=== PATIENT | male | born 1965 | race Caucasian/White ===

== ENCOUNTER 2017-06-17 22:38 | Emergency (ER) | payer OTHER ==
[~2017-06-17] VITALS: Ht 190.5 cm; Wt 122.5 kg
[~2017-06-17 22:38] MED LIST: ASPIRIN 81MG TA81 MG PO; FOLIC ACID 1MG T1 MG PO; ISOSORBIDE MONO30 MG PO; METOPROLOL25 MG PO; NIASPAN500 M1 PO; NORVASC 10MG. T10 MG PO; OMEPRAZOLE40 MG PO; PRAVASTATIN 40M40 MG PO
[2017-06-17] MEDS ORDERED: BISOPROLOL FUMA1 TA4 PO (22:51)
[2017-06-17] MEDS ORDERED: CLOPIDOGREL75 M2 PO (22:53)
--- OUTSIDE RECORDS SUMMARY | 2017-06-17 22:58 | External Medical Summary Rpt ---
Author Author ELDON Ortega, ELDON Ortega Organization [employer] Address Unknown Phone Unavailable
--- OUTSIDE RECORDS SUMMARY | 2017-06-17 22:58 | External Medical Summary Rpt ---
Author Author ELDON Ortega, ELDON Ortega Organization [employer] Address Unknown Phone Unavailable
--- OUTSIDE RECORDS SUMMARY | 2017-06-17 22:58 | External Medical Summary Rpt | CCD ---
Author Author , ELDON COLÓN Address Unknown Phone Care Team Providers Care Operating Room Surgical Technician Name Role Phone AMBROCIO RODRÍGUEZ, AMBROCIO RODRÍGUEZ Unavailable Unavailable [facility] Unavailable Unavailable [facility], [facility] GIBSON ONOFRE, GIBSON Unavailable Unavailable JEMIMA Purpose Continuity of Care Document - 09-27-2013 through 2016 Problems Code Diagnosis DOS Provider Status 4011 ESSENTIAL 10-04-2013 [facility] HYPERTENSIO [place] N, [facility] 51549 CORONARY 10-04-2013 NEW ATHEROSCLER [place] [facility] CORONARY ARTERY 4111 INTERMEDIAT 10-03-2013 NEW E CORONARY [facility] 4139 OTHER AND 10-03-2013 GIBSON ONOFRE UNSPECIFIED ANGINA PECTORIS 48362 OTHER 10-03-2013 GIBSON ONOFRE DYSPNEA AND RESPIRATORY ABNORMALITI ES 7993 UNSPECIFIED 10-03-2013 GIBSON ONOFRE DEBILITY 2724 OTHER AND 10-02-2013 NEW UNSPECIFIED [facility] HYPERLIPIDE KASIE 3674 PRESBYOPIA 09-27-2013 AMBROCIO RODRÍGUEZ
--- OUTSIDE RECORDS SUMMARY | 2017-06-17 22:58 | External Medical Summary Rpt | CCD ---
Demographics Preferred Language Filipino Marital Status Unknown Mosque Affiliation Unknown Race Unknown Ethnic Group Unknown Author Author , ELDON COLÓN Address Unknown Phone Immunization No patient found.
--- OUTSIDE RECORDS SUMMARY | 2017-06-17 22:58 | External Medical Summary Rpt | CCD ---
Author Author , ELDON COLÓN Address Unknown Phone Care Team Providers Care Mixer Operator Raw Salt Name Role Phone AMBROCIO RODRÍGUEZ, AMBROCIO RODRÍGUEZ Unavailable Unavailable [facility] Unavailable Unavailable [facility], [facility] GIBSON ONOFRE, GIBSON Unavailable Unavailable JEMIMA Purpose Continuity of Care Document - 09-27-2013 through 2016 Problems Code Diagnosis DOS Provider Status 4011 ESSENTIAL 10-04-2013 NEW HYPERTENSIO [place] N, [facility] 61745 CORONARY 10-04-2013 NEW ATHEROSCLER [place] [facility] CORONARY ARTERY 4111 INTERMEDIAT 10-03-2013 NEW E CORONARY [facility] PSC 4139 OTHER AND 10-03-2013 GIBSON ONOFRE UNSPECIFIED ANGINA PECTORIS 68764 OTHER 10-03-2013 GIBSON ONOFRE DYSPNEA AND RESPIRATORY ABNORMALITI ES 7993 UNSPECIFIED 10-03-2013 GIBSON ONOFRE DEBILITY 2724 OTHER AND 10-02-2013 NEW UNSPECIFIED [facility] HYPERLIPIDE KASIE 3674 PRESBYOPIA 09-27-2013 AMBROCIO RODRÍGUEZ
--- OUTSIDE RECORDS SUMMARY | 2017-06-17 22:58 | External Medical Summary Rpt | CCD ---
Author Author , ELDON COLÓN Address Unknown Phone Care Team Providers Care Tinning Machine Set Up Operator Name Role Phone AMBROCIO RODRÍGUEZ, AMBROCIO RODRÍGUEZ Unavailable Unavailable [facility] Unavailable Unavailable P[facility], [facility] GIBSON ONOFRE, GIBSON Unavailable Unavailable JEMIMA Purpose Continuity of Care Document - 09-27-2013 through 2016 Problems Code Diagnosis DOS Provider Status 4011 ESSENTIAL 10-04-[address] [facility] HYPERTENSIO [place] N, [facility] 01936 CORONARY 10-04-2013 NEW ATHEROSCLER [place] [facility] CORONARY ARTERY 4111 INTERMEDIAT 10-03-2013 NEW E CORONARY [facility] P[facility] 4139 OTHER AND 10-03-2013 GIBSON ONOFRE UNSPECIFIED ANGINA PECTORIS 60759 OTHER 10-03-2013 GIBSON ONOFRE DYSPNEA AND RESPIRATORY ABNORMALITI ES 7993 UNSPECIFIED 10-03-2013 GIBSON ONOFRE DEBILITY 2724 OTHER AND 10-02-2013 NEW UNSPECIFIED [facility] HYPERLIPIDE KASIE 3674 PRESBYOPIA 09-27-2013 AMBROCIO RODRÍGUEZ
--- OUTSIDE RECORDS SUMMARY | 2017-06-17 22:58 | External Medical Summary Rpt | CCD ---
Author Author , ELDON COLÓN Address Unknown Phone [email or web address] Care Team Providers Care Key Person Name Role Phone AMBROCIO RODRÍGUEZ, AMBROCIO RODRÍGUEZ Unavailable Unavailable [facility] Unavailable Unavailable [facility], [facility] GIBSON ONOFRE, GIBSON Unavailable Unavailable JEMIMA Purpose Continuity of Care Document - 09-27-2013 through 2016 Problems Code Diagnosis DOS Provider Status 4011 ESSENTIAL 10-04-2013 NEW HYPERTENSIO [place] N, [facility] 55419 CORONARY 10-04-2013 NEW ATHEROSCLER [place] [facility] CORONARY ARTERY 4111 INTERMEDIAT 10-03-2013 NEW E CORONARY [facility] [facility] 4139 OTHER AND 10-03-2013 GIBSON ONOFRE UNSPECIFIED ANGINA PECTORIS 81864 OTHER 10-03-2013 GIBSON ONOFRE DYSPNEA AND RESPIRATORY ABNORMALITI ES 7993 UNSPECIFIED 10-03-2013 GIBSON ONOFRE DEBILITY 2724 OTHER AND 10-02-2013 NEW UNSPECIFIED [facility] HYPERLIPIDE KASIE 3674 PRESBYOPIA 09-27-2013 AMBROCIO RODRÍGUEZ
--- OUTSIDE RECORDS SUMMARY | 2017-06-17 22:58 | External Medical Summary Rpt | CCD ---
Demographics Preferred Language Irish Marital Status Unknown Anabaptist Affiliation Unknown Race Unknown Ethnic Group Unknown Author Author , ELDON COLÓN Address Unknown Phone Immunization No patient found.
--- NOTE | 2017-06-17 23:08 | Emergency Room Report ---
History of Present Illness Time Seen by 4700 Presenting Problem in Triage Pt arrived:Walked Presenting Problem:FEELS LIKE HE HAS SOMETHING STUCK IN HIS THROAT. HAS FELT THAT WAY FOR A WEEK. DENIES DIFFICULTY CHEWING OR SWALLING. REPORTS DIFFICULTY BREATHING. 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 N Clinical Suspician of Infection? N Mental Status: 1 - Regular (Normal Baseline) Sepsis Risk:Low Sepsis Risk Have you (or family members/close friends) recently traveled outside the [facility]? N If Yes, where/when: Have you had exposure to infectious disease within the past month? N TB? Other? Specify: Comment The patient has a couple of different problems with breathing. He says since mid -April he has had a sensation of being short of air, sometimes waking him up at night. For the past week he also now feels like he has a constriction in his throat, something causing difficulty in getting air past the area of his lower neck area. He thinks this all started after regurgitating some pizza. He says that he gets sick about a month ago when he was in [place] with a bad head cold. He called his physician last week and was prescribed doxycycline. The cold symptoms have improved. He does not have any current nasal drainage or postnasal drip. He says at one point he was very hoarse and couldn't talk, that has also improved. He has been traveling to [place] and [place], driving frequently. He has some swelling of his legs intermittently. ALLERGIES Coded Allergies: amoxicillin (06/17/17) levofloxacin (From LEVAQUIN) (06/17/17) oxybutynin (06/17/17) Home Medications Reported Medications AMLODIPINE BESYLATE (Norvasc) 10 MG PO DAILY Isosorbide Mononitrate (Isosorbide Mononitrate ER) 30 MG PO DAILY Omeprazole (Omeprazole 40MG) 40 MG PO DAILY ASPIRIN (Aspirin) 81 MG PO DAILY PRAVASTATIN SODIUM (Pravastatin Sodium) 80 MG PO QHS FOLIC ACID (Folic Acid) 400 MCG PO DAILY BISOPROLOL FUMARATE/HCTZ (Bisoprolol-Hctz 10-6.25 MG Tab) 1 TAB PO DAILY CLOPIDOGREL BISULFATE (Clopidogrel) 75 MG PO DAILY #30 History Medical History General CAD? Yes Angina: Yes LA: Yes Hypertension? Yes Hyperlipidemia? Yes CHF? No DVT? No PE? No COPD? No Asthma? No Anemia? No GERD? No Gastric ulcers? No GI Bleed? No Hernia? No Thyroid Problems? No Hypothyroidism? No CVA? No Seizures? No Diabetes? No Renal Insuffiency? No End Stage Renal Disease? No UTI? No Stones? No BPH? No GB Disease: No Nephritic Syndrome? No Asplenia? No Hepatitis? No Sickle Cell Disease? No Arthritis? No Migraines? No Cataracts? No Glaucoma? No MRSA? No HIV? No TB? No Anxiety? No Depression? No Cancer? No More? No Immunization Hx DT/Tetanus Unknown Surgical Hx Previous Surgery?Y Hernia Repair RIGHT HAND ABDOMINAL ANNEURYSM Social History Smoking Hx Smoker: Former Smoker Tobacco: No Are you/the child exposed to second-hand smoke: No Alcohol Alcohol: Yes Review of Systems All Other Systems Reviewed and Negative Constitutional denies fever ENT see HPI. Respiratory shortness of breath Cardiovascular denies chest pain Physical Exam Vital Signs Vital Signs Date Time Temp Pulse Resp B/P Pulse O2 O2 Flow FiO2 Ox Delivery Rate 06/18 0128 97.7 60 12 148/67 97 06/18 0127 97.7 60 12 148/67 97 06/17 2242 97.7 70 18 202/108 98 General Appearance no apparent distress Eye Exam - bilateral eye normal exam, bilateral eye PERRL, bilateral eye EOMI Ear, Nose, Throat asymmetry of posterior pharynx, RIGHT side protrudes more than LEFT. No stridor or drooling. Neck normal inspection, non-tender, supple, full range of motion Respiratory Status Yes: trachea midline, chest symmetrical. No: respiratory distress. Lung Sounds bilateral: normal breath sounds, lungs clear. Cardiovascular normal exam, regular rate/rhythm, no peripheral edema, no gallop, no JVD, no murmur, no rub, normal peripheral pulses Gastrointestinal normal bowel sounds, normal exam, non tender, soft, no organomegaly Extremities normal inspection, no calf tenderness, no pedal edema Neurologic alert, oriented x 3 Mental status normal mood/affect Skin intact, normal color, warm/dry Lymphatic no adenopathy Medical Decision Making LABS/Meds/Orders Pt receiving controlled substance in ED? No Results/Orders Laboratory Tests 06/17/172334: Sodium 142, Potassium 3.6, Chloride 105, Carbon Dioxide 26, BUN 22 H, Creatinine 1.4 H, Estimated Creat Clear 108, Estimated GFR (MDRD) 53, Glucose 97, Calcium 9.5, Total Bilirubin 0.3, AST 35, ALT 49, Alkaline Phosphatase 66, Troponin I < 0.02, Total Protein 7.7, Albumin 4.0, Globulin 3.7 H, Albumin/ Globulin Ratio 1.1, D-Dimer 3890 *H, WBC 9.8, RBC 4.45 L, Hgb 14.2, Hct 41.3 L , MCV 92.6, RDW 13.2, Plt Count 292, MPV 7.1 L, Gran % 64.0, Gran # 6.3, Lymphocytes % 27.7, Monocytes % 5.9, Eosinophils % 2.1, Basophils % 0.3, Lymphocytes # 2.7, Monocytes # 0.6, Eosinophils # 0.2, Basophils # 0.0, PUBS MCHC 34.4, MCH 31.8 H Current Medication Orders Sig/Marlee Start time Last Medication Dose Route Stop Time Status Admin Dexamethasone Sodium 8 MG ONCE ONE 06/18 115 DC 06/18 Phosphate IV 06/18 116 0112 Dexamethasone Sodium 0 .STK-MED ONE 06/18 113 DC Phosphate .ROUTE Dexamethasone Sodium 0 .STK-MED ONE 06/18 107 DC Phosphate .ROUTE Iopamidol 75 ML ONCE ONE 06/18 100 DCD 06/18 IV 06/18 010 0048 Sodium Chloride 10 ML PRN PRN 06/18 100 DCD 06/18 IV 06/18 0217 0048 Sodium Chloride 1,000 ML .STK-MED ONE 06/185 DC IV Sodium Chloride 1,000 ML .Q1H1M 06/18 0015 DC 06/18 IV 06/18 011 0029 Sodium Chloride 10 ML PRN PRN 06/17 2330 DCD IV 06/18 2322 Orders Procedure Date/time Status DIET-NOTHING BY MOUTH 06/[address] SOFT TISSUE NECK W/CONTRAST 06/18 2338 Active CTA-CHEST 06/[address] SCAN REQ 06/[address] CHEST W/PE PROTOCOL REQ 06/18 233 Active ELECTROCARDIOGRAM REQUEST 06/17 2322 Active IV SALINE LOCK 06/17 2322 Active TROPONIN I 06/17 2322 Complete D-DIMER 06/17 2322 Complete CBC WITH AUTO DIFF 06/17 2322 Complete CHEM 12 PROFILE 06/17 2322 Complete CHEST(2 VIEWS-NOT PORTABLE) 06/17 2259 Active 12 LEAD EKG-POLLY (INITIAL) 06/17 UNK Active CM/EKG CM/EKG Comments EKG interpreted by Adan Groves MD: Rhythm: sinus bradycardia Rate: 57 Donald: normal Ectopy: none Conduction: normal ST Segment Changes: none T Wave Changes: none Q Waves: none No evidence of acute ischemia or injury XRAY/CT/US XRAY/CT/US Comment Chest x-ray interpreted by Adan Groves M.D. No infiltrate, pneumothorax, pleural effusion, or wide mediastinum. No foreign body seen. CT chest, neck Comment CT scan interpreted by [facility] radiologist. Faxed report received and reviewed: Chest: No acute process Neck: 6 mm nodule apex of RIGHT lung. Abnormal masslike soft tissue density involving the larynx. This may be infectious, inflammatory, or neoplastic. Departure Departure Disposition DC Home or Self Care(routine) Clinical Impression Primary Impression: Laryngeal edema Condition STABLE Referrals Polly KIRKLAND,Gigi (Family) Gilbert KIRKLAND,Edil [facility] - call for appointment Patient Instructions DI for Laryngitis, DI for Pulmonary Nodule Additional Instructions Follow-up with your primary care physician or ear nose throat physician if throat symptoms persist this week. Return to the emergency department if any increased difficulty breathing. Follow-up with your primary care physician regarding pulmonary nodule, recommended repeat CT scan in 6-12 months. Prescriptions Current Visit Scripts Prednisone (Prednisone 10MG) 10 MG PO DAILY #27 TAB 6 po on days 1-2, then decrease dose by 1 pill per day until gone ED Critical Care Critical Care No at 0140
[2017-06-17 23:48] LABS: HEMOGLOBIN 14.2 g/dL (14.1-18.0); LYMPH # 2.7 K/mm3 (0.7-4.5); LYMPH % 27.7 % (10-50)
[2017-06-18] LABS: BUN 22 mg/dL (7-18)
[2017-06-18 00:11] LABS: GFR (ESTIMATED) 53 ML/MIN (>60)
[2017-06-18] MEDS ORDERED: PREDNISONE 10MG10 MG PO (01:20)
[2017-06-18 01:28] VITALS: BP 148/67
--- NOTE | 2017-06-18 13:32 | RADIOLOGY REPORT PS360 ---
CTA-CHEST Ordering Physician: Adan Groves MD Patient Age: 51 years: Male HISTORY: SOA Previous smoker. Dyspnea. Dysphagia. TECHNIQUE: Helical CT is performed the chest following cc cc Isovue-370 followed x 40 mL normal. COMPARISON : Only a AP chest from 12/31/2014 FINDINGS Is a note small 5.5 mm nonspecific nodule at the right lung apex seen on the CT C-spine as well as a final CT apex lung images from today. The pulmonary artery with good contrast with no evidence of pulmonary embolism... Minimal iatrogenic air at the base of pulmonary artery anteriorly from IV contrast injection. Aorta is normal in caliber with no aneurysm nor dissection. Minimal calcification origin of great vessels. Heart. Coronary artery calcifications throughout involving left main, LAD, circumflex. Borderline cardiomegaly. No vascular congestion. COPD with underlying emphysematous changes developing. There is scarring at the anterior right lung base. Linear in character at anterior RML. . Calcified hilar granulomatous most evident at right ren more so than left, most notable flexion calcified nodes measuring over 50 mm there azygos just above right bronchus.. No pathologic hilar no mediastinal adenopathy. Chest wall. No significant findings. Upper abdomen. Fatty changes in liver... Cannot exclude tiny early gallstone. Equivocal at best. Abdominal endograft with begins at the level of the celiac artery. Additional short Stent at SMA origin is noted and associated. IMPRESSION: 1. No evidence of pulmonary embolism. Good enhancement & evaluation pulmonary arteries on this study. Aortic arch great vessels satisfactory. 2. No acute findings in the chest. Early emphysematous changes. Old renal masses disease. 3.Small 5.5 mm nonspecific nodule at the right lung apex. Doubt of significance but warrants follow-up 4.. Borderline cardiomegaly. Coronary artery calcification. No CHF 5. Abdominal aortic endograft stent noted as in text..
--- NOTE | 2017-06-18 13:33 | RADIOLOGY REPORT PS360 ---
CHEST(2 VIEWS-NOT PORTABLE) Ordering physician: Adan Groves MD Age: 51 years Male INDICATION: chest symptomsSOA previous smoker PROCEDURE: CHEST(2 VIEWS-NOT PORTABLE) FINDINGS: Mild hyperexpansion and flattened diaphragms the lateral film suggesting possible mild early developing COPD features. \ Lungs well expanded and clear with nothing definitely acute. No pneumothorax. No pleural effusion.. Heart normal size. Normal pulmonary vascularity. Hilar and mediastinal structures appear satisfactory. The left ren is more generous than the right butThis is similar to 2015 CXR. Stable chest Chest wall unremarkable.. . The aorto endograft stent incidentally noted in place. The upper abdomen. IMPRESSION ----- Stable chest. Lungs mildly hyperexpanded but clear. Nothing definitely acute
--- NOTE | 2017-06-19 08:42 | RADIOLOGY REPORT PS360 ---
CT SOFT TISSUE NECK W/CONTRAST Ordering Physician: Adan Groves MD Patient Age: 51 years: Male HISTORY: SOA dyspnea. Dysphagia. TECHNIQUE: Helical CT scanning performed through the neck but with no IV contrast utilized. I would note IV contrast very helpful in evaluating neck. Axial, Sagittal & coronal reconstructions on CT workstation COMPARISON :. No previous neck studies. Lateral view of neck from the CT head 1615 FINDINGS \ Subtle additional soft tissue density region of larynx this most evident posteriorly at midline at at and above the level of the arytenoid cartilage with slight additional soft tissue density suggestion of midline sagittal image 33, axial 60-62.. Also appears to be some mild thickening or edema in the region of the false cords extending down to the true cords.-These features seemed obscure the laryngeal ventricle which is not visualized on today's study coronal views as typically seen. Suspect mild thickening of the aryepiglottic fold and.. No significant subglottic edema These features could reflect a localized inflammation with swelling, but I could not exclude other process or early neoplastic process. ENT consult recommended. If symptoms persist to direct visualization recommended Epiglottis appears normal. There is some minor lymphoid tissue prominence at the base the finding at lingual tonsil of partially extends towards the vallecula. However no discrete mass is seen here. Hasty tonsils of moderate size.. More superiorly the nasopharynx appears satisfactory No additional significant neck adenopathy. Scattered mild to moderate size reactive nodes are seen at the anterior cervical chain anterior to the carotid bifurcation. One of the larger nodes measures 11 mm x 8 mm jugulodigastric region on left. Slight increased number of scattered small likely reactive nodes are seen extending throughout the anterior cervical chain, throughout this region down to the supraclavicular region.. Calcified right carotid bifurcation more so than left.. Paranasal sinuses: diffuse moderate/generous mucosal thickening throughout floor inferior aspect maxillary sinuses bilaterally . Slight lobulated in character this mucosal thickening has become evident since prior 2015 CT head.The partially imaged ethmoid air cells and sphenoid sinus appear clear. Base of skull intact. Degenerative changes C-spine, cervical spondylosis. Degenerative disc space narrowing & early cervical spondylosis c4/5, C5 /C6, C6/7. Mild posterior hypertrophic osteophytes at each of these levels most evident C5/ C6 & C6/7 with foraminal encroachment noted bilaterally due to spurring. At the right lung apex is a 5.6 mm nodular density. Tend to favor due to scarring but will benefit from follow-up a particular if a history of smoking.CT chest in 6 months suggested IMPRESSION 1. Suggestion of small focal soft tissue density posterior supraglottic region just above & between the calcified arytenoid cartilage elements, (sagittal image 33. Axial slice 60-62) . Also associated thickening towards aryepiglottic folds with some mild edema and/or thickening extending towards false & true vocal cord region I believe evident.-. These latter features obscure the typically visualized laryngeal ventricle.. (Although observations may reflect an inflammatory process, cannot exclude early neoplastic process, as discussed on [facility] report. Requires ENT follow-up) 2. Scattered small to moderate size reactive appearing nodes throughout the neck no prominent enlarged nodes nor suspicious adenopathy. 3. Moderate/generous mucosal thickening inferior maxillary sinuses bilaterally-partially imaged 4. Degenerative changes and spondylosis cervical spine. Most evident C5-C6, C6/7 followed by C4/5. 5. Small 6 mm nodular density at the right lung apex. Nonspecific. Warrants follow-up CT chest in 6 months.
== END 2017-06-18 01:29 | disposition home or self-care (01) ==
LOC: ER 22:38
PROVIDERS: Emergency Medicine
DX: J38.4 Edema of larynx (principal); Z87.891 Personal history of nicotine dependence; Z88.1 Allergy status to other antibiotic agents; I10 Essential (primary) hypertension; E78.5 Hyperlipidemia, unspecified; F10.10 Alcohol abuse, uncomplicated
CPT/HCPCS: Q9967